=== PATIENT | female | born 1985 | race African-American/Black ===

== ENCOUNTER 2020-01-23 12:52 | Emergency (ER) | payer MEDICAID ==
--- NOTE | 2020-01-23 14:12 | ER Document Report ---
ED Medical Screen (RME) - General Chief Complaint: Weakness Stated Complaint: DIFFICULTY BREATHING Time Seen by Provider: 01/23/20 13:59 - HPI Notes: 01/23/20 14:08 34-year-old female with a history of sinus tachycardia, asthma, and anxiety presents to the emergency room with complaints of diziness, and shortness of breath, and chest pain while she was driving around 10:00 this morning. Patient states that she has been having intermittent left-sided heart pain that intermittently will radiate to her back and then she feels shortness of breath along with it. CP been occurring on and off for the last 2 weeks but has become worse in the last few days. States today she had the chest pain. Reports she does see a referral specialist in [place] for her sinus tachycardia, did have a stress test done 3 to 4 years ago which was normal. 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 Reports mother has a history of diabetes, dad has a history of hypertension and hyperlipidemia. Patient states she is also have some nausea, diarrhea and abdominal pain for the last month. Denies any fevers or chills, has not been around any cold with positive patients. Patient states denies any abdominal pain. Denies being a smoker. I have greeted and performed a rapid initial assessment of this patient. A comprehensive ED assessment and evaluation of the patient, analysis of test results and completion of the medical decision making process will be conducted by additional ED providers. PHYSICAL EXAMINATION: GENERAL: Well-appearing, well-nourished and in no acute distress. HEAD: Atraumatic, normocephalic. EYES: Pupils equal round extraocular movements intact, conjunctiva are normal. NECK: Normal range of motion CV: s1, s2 regular LUNGS: No respiratory distress Past Medical History - Social History Chew tobacco use (# tins/day): No Drug Abuse: None Physical Exam - Vital signs Vitals: Temp Pulse Resp BP Pulse Ox 98.8 F 95 18 147/90 H 100 01/23/20 12:58 01/23/20 12:58 01/23/20 12:58 01/23/20 12:58 01/23/20 12:58 Course - Vital Signs Vital signs: Temp Pulse Resp BP Pulse Ox 98.8 F 95 18 147/90 H 100 01/23/20 12:58 01/23/20 12:58 01/23/20 12:58 01/23/20 12:58 01/23/20 12:58
--- NOTE | 2020-01-23 15:03 | EKG REPORT ---
SEVERITY:- BORDERLINE ECG - SINUS TACHYCARDIA PROBABLE LEFT ATRIAL ABNORMALITY : Confirmed by: Michael Stephen MD 23-Jan-2020 15:03:17
[2020-01-23 15:04] LABS: APPEARANCE,URINE CLOUDY; BILIRUBIN,URINE NEGATIVE (NEGATIVE); COLOR,URINE YELLOW; GLUCOSE, URINE NEGATIVE (NEGATIVE); KETONES,URINE NEGATIVE (NEGATIVE); LEUKOCYTE ESTERASE,URINE NEGATIVE (NEGATIVE); NITRITE,URINE NEGATIVE (NEGATIVE); PROTEIN,URINE NEGATIVE (NEGATIVE); URINE SPECIFIC GRAVITY 1.017; UROBILINOGEN,URINE NEGATIVE mg/dL (<2.0)
--- NOTE | 2020-01-23 15:06 | ER Document Report ---
ED General - General Chief Complaint: Weakness Stated Complaint: DIFFICULTY BREATHING Time Seen by Provider: 01/23/20 13:59 Mode of Arrival: Ambulatory Information source: Patient Notes: 01/23/20 14:02 - ED Nursing Note by [facility] Num: [id number] : 1985 Patient Age: 34 Pt states intermittent chest pain x few days, weakness, and sensation in her head, also loose bowels x 1 month. Denies fevers. Radha notes - General Chief Complaint: Weakness Stated Complaint: DIFFICULTY BREATHING Time Seen by Provider: 01/23/20 13:59 - HPI Notes: 01/23/20 14:08 34-year-old female with a history of sinus tachycardia, asthma, and anxiety presents to the emergency room with complaints of diziness, and shortness of breath, and chest pain while she was driving around 10:00 this morning. Patient states that she has been having intermittent left-sided heart pain that intermittently will radiate to her back and then she feels shortness of breath along with it. CP been occurring on and off for the last 2 weeks but has become worse in the last few days. States today she had the chest pain. Reports she does see a ophthalmologist retina specialist in [place] for her sinus tachycardia, did have a stress test done 3 to 4 years ago which was normal. 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 Reports mother has a history of diabetes, dad has a history of hypertension and hyperlipidemia. Patient states she is also have some nausea, diarrhea and abdominal pain for the last month. Denies any fevers or chills, has not been around any cold with positive patients. Patient states denies any abdominal pain. Denies being a smoker. I have greeted and performed a rapid initial assessment of this patient. A comprehensive ED assessment and evaluation of the patient, analysis of test results and completion of the medical decision making process will be conducted by additional ED providers. PHYSICAL EXAMINATION: GENERAL: Well-appearing, well-nourished and in no acute distress. HEAD: Atraumatic, normocephalic. EYES: Pupils equal round extraocular movements intact, conjunctiva are normal. NECK: Normal range of motion CV: s1, s2 regular LUNGS: No respiratory distress 34-year-old black female arrives by POV after she became very dizzy while driving today just prior to arrival. She pulled over and her friend continue driving for her and drove her to this hospital. Patient has a history of having nasal congestion sore throat severe fatigue butterfly rash around her cheeks and around her forehead and anterior chest pain. This is been present since August of this year. She has been followed by her [place] doctor . Patient has been running serial D-dimers that are positive. 2 months ago she passed out and had a negative CT of chest for pulmonary embolism. Also 2 months ago she is complaining of ear fullness and was told by urgent care in [place] that she had a swimmer's ear. Examination today reveals bilateral severe serous otitis media. External canals looked within normal limits. Posterior pharyngeal cursory exam reveals mucoid purulent discharge draining from the back of her throat. Patient reports that her butterfly rash was seen and treated by [place] clinical neuropsychologist and she was placed on topical retinol with success?Of the rash fading after 1-1/2 months on the retinol. Patient has been complaining also of dizziness and feeling like a vice on her head as well as someone standing on her chest with shortness of breath and SPRINGER. Patient denies any prior history of VA but is morbidly obese. She denies any thyroid disease in her or any the family members. She has not been checked for thyroid problems or mono nucleus is. TRAVEL OUTSIDE OF THE [place] IN LAST 30 DAYS: No - HPI Onset: Just prior to arrival Onset/Duration: Sudden, Persistent, Worse Quality of pain: Achy Severity: Moderate Pain Level: 2 Associated symptoms: Chest pain, Nonproductive cough, Headache, Shortness of breath Exacerbated by: Movement Relieved by: Denies Similar symptoms previously: Yes Recently seen / treated by doctor: Yes Past Medical History - General Information source: Patient - Social History Smoking Status: Never Smoker Cigarette use (# per day): No Chew tobacco use (# tins/day): No Smoking Education Provided: No Frequency of alcohol use: None Drug Abuse: None Lives with: Family Family History: Reviewed & Not Pertinent Patient has suicidal ideation: No Patient has homicidal ideation: No Review of Systems - Review of Systems Constitutional: No symptoms reported EENT: No symptoms reported Cardiovascular: See HPI, Chest pain Respiratory: No symptoms reported Gastrointestinal: No symptoms reported Genitourinary: No symptoms reported Female Genitourinary: No symptoms reported Musculoskeletal: No symptoms reported Skin: No symptoms reported Hematologic/Lymphatic: No symptoms reported Neurological/Psychological: No symptoms reported Physical Exam - Vital signs Vitals: Temp Pulse Resp BP Pulse Ox 98.8 F 95 18 147/90 H 100 01/23/20 12:58 01/23/20 12:58 01/23/20 12:58 01/23/20 12:58 01/23/20 12:58 Interpretation: Hypertensive - General General appearance: Alert, Anxious - HEENT Head: Normocephalic, Atraumatic Eyes: Normal Pupils: PERRL Nasal: Normal Mouth/Lips: Normal Mucous membranes: Moist Pharynx: Tonsillar hypertrophy, Other - Mucopurulent discharge on posterior pharynx Neck: Normal, Thyromegally - Respiratory Respiratory status: No respiratory distress Chest status: Nontender Breath sounds: Normal Chest palpation: Normal Course - Vital Signs Vital signs: Temp Pulse Resp BP Pulse Ox 98.8 F 95 15 144/94 H 99 01/23/20 12:58 01/23/20 12:58 01/23/20 19:01 01/23/20 19:01 01/23/20 19:06 - Laboratory Result Diagrams: 01/23/20 14:25 01/23/20 14:25 Laboratory results interpreted by me: 01/23/20 01/23/20 01/23/20 14:25 14:25 14:25 RDW 15.8 H D-Dimer 1.48 H Sodium 135.9 L Alkaline Phosphatase 157 H Critical Care Note - Critical Care Note Comments: I advised patient of her CT findings her ultrasound findings and her laboratory findings. Discharge - Discharge Clinical Impression: D-dimer, elevated Pharyngitis Qualifiers: Pharyngitis/tonsillitis etiology: unspecified etiology Qualified Code(s): J02.9 - Acute pharyngitis, unspecified Acute serous otitis media of both ears Qualifiers: Recurrence: not specified as recurrent Qualified Code(s): H65.03 - Acute serous otitis media, bilateral Condition: Good Disposition: HOME, SELF-CARE Additional Instructions: Follow-up with ENT and with personal doctor return to ER as needed take medicines as directed encourage fluids. Apply Bactroban to anterior nose nightly for 5 nights and take antibiotics as directed. Prescriptions: Amoxicillin/Potassium Clav [Augmentin 875-125 Tablet] 1 tab PO BID #20 tab Mupirocin [Bactroban 2% Ointment 22 gm] 1 applic TP HSP PRN #1 tube PRN Reason:
[2020-01-23 15:10] LABS: ABSOLUTE LYMPHOCYTES (AUTO) 1.3 10^3/uL (0.5-4.7); ABSOLUTE MONOCYTES (AUTO) 0.4 10^3/uL (0.1-1.4); ABSOLUTE NEUT (AUTO) 3.5 10^3/uL (1.7-8.2); BASOPHILS % (AUTO) 0.4 % (0-2); EOSINOPHILS % (AUTO) 0.6 % (0-6); HEMOGLOBIN 13.8 g/dL (12.0-15.5); LYMPHOCYTES % (AUTO) 25.3 % (13-45); MEAN CORPUSCULAR HEMOGLOBIN 28.1 pg (27.0-33.4); MEAN CORPUSCULAR VOLUME 85 fl (80-97); MONOCYTES % (AUTO) 6.9 % (3-13); PLATELET COUNT 305 10^3/uL (150-450); RED BLOOD COUNT 4.92 10^6/uL (3.72-5.28); RED CELL DISTRIBUTION WIDTH 15.8 % (11.5-14.0); SEGMENTED NEUTROPHILS % (AUTO) 66.8 % (42-78); TOTAL CELLS COUNTED % (AUTO) 100 %; WHITE BLOOD COUNT 5.3 10^3/uL (4.0-10.5)
--- NOTE | 2020-01-23 15:22 | RADIOLOGY REPORT (SQ) ---
EXAM DESCRIPTION: CHEST 2 VIEWS IMAGES COMPLETED DATE/TIME: 01/23/2020 3:12 pm REASON FOR STUDY: cp COMPARISON: None. EXAM PARAMETERS: NUMBER OF VIEWS: two views TECHNIQUE: Digital Frontal and Lateral radiographic views of the chest acquired. RADIATION DOSE: NA LIMITATIONS: none FINDINGS: LUNGS AND PLEURA: No opacities, masses or pneumothorax. No pleural effusion. MEDIASTINUM AND HILAR STRUCTURES: No masses or contour abnormalities. HEART AND VASCULAR STRUCTURES: Heart normal size. No evidence for failure. BONES: No acute findings. HARDWARE: None in the chest. OTHER: No other significant finding. IMPRESSION: NO ACUTE RADIOGRAPHIC FINDING IN THE CHEST. TECHNICAL DOCUMENTATION: JOB ID: [id number] 2010 [employer]- All Rights Reserved Reading location - IP/workstation name: [email or web address]
[2020-01-23 15:24] LABS: ALBUMIN 3.6 g/dL (3.5-5.0); ALKALINE PHOSPHATASE 157 U/L (38-126); ANION GAP 6 (5-19); ASPARTATE AMINO TRANSFERASE 23 U/L (14-36); BILIRUBIN,TOTAL 0.3 mg/dL (0.2-1.3); BLOOD UREA NITROGEN 11 mg/dL (7-20); CALCIUM 9.3 mg/dL (8.4-10.2); CARBON DIOXIDE 26 mmol/L (22-30); CHLORIDE 104 mmol/L (98-107); CREATINE KINASE 52 U/L (30-135); GLUCOSE 92 mg/dL (75-110); POTASSIUM 4.2 mmol/L (3.6-5.0); TOTAL PROTEIN 7.5 g/dL (6.3-8.2)
[2020-01-23 15:36] LABS: CREATINE KINASE MB < 0.22 ng/mL (<4.55); TROPONIN I < 0.012 ng/mL
--- NOTE | 2020-01-23 20:38 | RADIOLOGY REPORT (SQ) ---
EXAM DESCRIPTION: CT HEAD WITHOUT IV CONTRAST COMPLETED DATE/TME: 01/23/2020 18:49 CLINICAL HISTORY: 34 years, Female, sob COMPARISON: None. TECHNIQUE: Noncontrast images of the brain were obtained. Images stored on PACS. All CT scanners at this facility use dose modulation, iterative reconstruction, and/or weight based dosing when appropriate to reduce radiation dose to as low as reasonably achievable (ALARA). [facility]: Dose Right [facility]: CareDose [facility]: Dose Right [facility]: Teradose 4D [facility]: goOutMap LIMITATIONS: None. FINDINGS: There is no evidence of acute intracranial hemorrhage or major vascular territorial infarct. There is a 14 x 14 x 10 mm wedge-shaped area of CSF attenuation extending to the cortical margin of the right frontoparietal lobe in the region of the central sulcus, which could represent an old infarct, arachnoid cyst or other structure within the sulcus. This could be further characterized with MRI. There is no significant abnormal mass effect. There is no midline shift. There is no hydrocephalus. Calvarium appears intact. The visualized portions of the paranasal sinuses and mastoid air cells are clear. IMPRESSION: No acute abnormality is seen. Wedge-shaped area of CSF attenuation is noted within the right frontoparietal region with considerations as above. This could be further characterized with MRI. MRI can be performed on a nonemergent basis. TECHNICAL DOCUMENTATION: Quality ID # [id number]: Final reports with documentation of one or more dose reduction techniques (e.g., Automated exposure control, adjustment of the mA and/or kV according to patient size, use of iterative reconstruction technique) copyright 2011 [employer]- All Rights Reserved
--- NOTE | 2020-01-23 20:53 | RADIOLOGY REPORT (SQ) ---
EXAM DESCRIPTION: CT pulmonary angiogram of the chest. CLINICAL HISTORY: 34 years Female; sob TECHNIQUE: CT angiogram of the chest using intravenous contrast.. MIP reconstructions were performed. All CT scans at this facility use dose modulation, iterative reconstruction, and/or weight based dosing when appropriate to reduce radiation dose to as low as reasonably achievable. COMPARISON: None. FINDINGS: Chest: Vascular: Exam is of diagnostic quality. There is no evidence of pulmonary embolization bilaterally. Thoracic aorta is of normal caliber. No aneurysm or dissection. The proximal great vessels are normal. The left vertebral artery arises directly from the aortic arch. Lungs: The lungs are clear. No pneumonia or edema. No pleural effusion or pneumothorax. No pulmonary nodules or masses. Mediastinum: Heart size is within normal limits. No pericardial abnormality. Esophagus is normal. Thyroid gland is normal. No mediastinal or hilar lymphadenopathy. Bones and soft tissues: Unremarkable Upper Abdomen: Visualized portion of the upper abdomen is unremarkable. IMPRESSION: No CT evidence for pulmonary embolism. No acute pulmonary findings.
--- NOTE | 2020-01-23 22:37 | RADIOLOGY REPORT (SQ) ---
EXAM DESCRIPTION: US EXTREMITY VEINS BILATERAL COMPLETED DATE/TME: 01/23/2020 21:02 CLINICAL HISTORY: 34 years, Female, d dimer sob COMPARISON: None. TECHNIQUE: Transverse and longitudinal sonographic images of the bilateral lower extremity deep venous system LIMITATIONS: None. FINDINGS: Study is somewhat limited due to patient body habitus. However, no visible areas of thrombus formation in either lower extremity. Doppler and spectral analysis with color flow shows grossly normal waveforms. Normal augmentation, and compression throughout. IMPRESSION: No sonographic evidence for DVT copyright 2010 [employer]- All Rights Reserved
[2020-01-23] MEDS ORDERED: AMOXICILLIN TR/POT CLAVULANATE 875-125 MG TAB PO ONE (23:45)
[2020-01-23 23:59] VITALS: BP 153/106
[2020-01-26 14:33] LABS: ANTINUCLEAR ANTIBODIES Negative (Negative)
== END 2020-01-23 23:57 | disposition home or self-care (01) ==
LOC: ER 12:52
DX: H65.03 Acute serous otitis media, bilateral (principal); J02.9 Acute pharyngitis, unspecified; R42 Dizziness and giddiness; R79.1 Abnormal coagulation profile; R07.9 Chest pain, unspecified; R53.1 Weakness; J45.909 Unspecified asthma, uncomplicated; R06.02 Shortness of breath; R11.0 Nausea; R19.7 Diarrhea, unspecified; R10.9 Unspecified abdominal pain; R51 Headache; J35.1 Hypertrophy of tonsils; E66.01 Morbid (severe) obesity due to excess calories; Z20.828 Contact with and (suspected) exposure to other viral communicable diseases
CPT/HCPCS: 93005; 99285; 36415; 87070; 82553; 87880; 82550; 83690; 84443; 85025; 87635; 81025; 87077; 86308; 80053; 81001; 84484; 85379; 86038; 93970; 71046; 70450; 71275; 93010; J3490; C9803